=== PATIENT | female | born 1960 | race Caucasian/White ===

== ENCOUNTER 2018-11-25 02:19 | Emergency (ER) | payer OTHER ==
[~2018-11-25] VITALS: Ht 162.6 cm; Wt 97.5 kg
--- NOTE | 2018-11-25 02:31 | ED.ADGEN ---
Past History Past Medical History: Bronchitis, Migraines, Other Past Surgical History: Other Past Surgical History Rotator cuff Adult General Chief Complaint Chief Complaint ".. I woke up with this terrible headache.. I was sleeping in my recliner... I get migraines.. but not usually this bad.. here in the Rt sided of my neck and head...." HPI HPI Patient is a 58 year old femal3 who presents with above hx and complaints Rt neck tenderness and headache. Pt. rates her headache pain as 18/10. Pt. denies any trauma or injury. Patient has history of migraines. Previous CTs negative. Patient past has taken Toradol for headaches when she has seen Dr. Christina. Patient denies any fever or chills. Patient denies any specific ill contacts or travel. Has had recent right shoulder surgery for rotator cuff injury. Pt. describes pain as severe. Pt. does have findings or Rt. trapezius spasm and para spinal muscle spasm > on Rt and at proximal insertion site at base of skull. Review of Systems Review of Systems Constitutional: Denies fever or chills [] Eyes: Denies change in visual acuity, redness, or eye pain [] HENT: Denies nasal congestion or sore throat [] Respiratory: Denies cough or shortness of breath [] Cardiovascular: No additional information not addressed in HPI [] GI: Denies abdominal pain, nausea, vomiting, bloody stools or diarrhea [] : Denies dysuria or hematuria [] Musculoskeletal: Denies back pain or joint pain []Complaints of Rt. sided neck pain. Integument: Denies rash or skin lesions [] Neurologic:complains of headache,Denies focal weakness or sensory changes [] Endocrine: Denies polyuria or polydipsia [] All other systems were reviewed and found to be within normal limits, except as documented in this note. Family History Family History Non-contributory Current Medications Current Medications Current Medications Medications (Trade) Dose Ordered Sig/Connor Start Time Stop Time Status Last Admin Dose Admin Diphenhydramine HCl (Benadryl) 50 mg 1X ONCE 11/25/18 02:45 11/25/18 02:49 DC 11/25/18 03:16 50 MG Ketorolac Tromethamine (Toradol 15mg Vial) 15 mg 1X ONCE 11/25/18 04:15 11/25/18 04:16 DC 11/25/18 04:21 15 MG Lactated Ringer's 1,000 ml @ 1,000 mls/hr Q1H 11/25/18 02:44 11/25/18 03:43 DC 11/25/18 03:15 1,000 MLS/HR Magnesium Sulfate 50 ml @ 25 mls/hr 1X ONCE 11/25/18 03:30 11/25/18 04:45 DC 11/25/18 04:00 25 MLS/HR Orphenadrine Citrate (Norflex) 60 mg 1X ONCE 11/25/18 02:45 11/25/18 02:49 DC 11/25/18 03:17 60 MG Oxycodone/ Acetaminophen (Percocet 5/325) 2 tab 1X ONCE 11/25/18 03:00 11/25/18 03:02 DC 11/25/18 03:17 2 TAB Sodium Chloride 50 ml @ As Directed STK-MED ONCE 11/25/18 03:05 11/25/18 03:06 DC Valproic Acid (Depacon) 500 mg STK-MED ONCE 11/25/18 03:06 11/25/18 03:07 DC Valproic Acid 500 mg/Sodium Chloride 55 ml @ 100 mls/hr 1X STAT 11/25/18 02:44 11/25/18 03:16 DC 11/25/18 03:16 100 MLS/HR See Nursing for home meds. Allergies Allergies Allergies Coded Allergies Type Severity Reaction Last Updated Verified Sulfa (Sulfonamide Antibiotics) Allergy Severe Hives 11/25/18 Yes Physical Exam Physical Exam Constitutional: Moderately acute distress, non-toxic appearance. [] HENT: Normocephalic, atraumatic, bilateral external ears normal, oropharynx moist, no oral exudates, nose normal. [] Eyes: PERRLA, EOMI, conjunctiva normal, no discharge. [] Neck: Muscle spasms , rt. trapezius tenderness, supple, no stridor. [] Cardiovascular:Heart rate regular rhythm, no murmur [] Lungs & Thorax: Bilateral breath sounds equal at apexes and scattered wheezes to auscultation [] Abdomen: Bowel sounds normal, soft, no tenderness, no masses, no pulsatile masses. [] Skin: Warm, dry, no erythema, no rash. [] Back: No tenderness, no CVA tenderness. [] Extremities: No tenderness, no cyanosis, no clubbing, ROM intact, no edema. [] Except. scar Rt shoulder- currently in sling for rotator cuff injury and surgery. Neurologic: Alert and oriented X 3, normal motor function, normal sensory function, no focal deficits noted. []DTR + 2 patella and brachial. Distal Vib. 128 intact. Psychologic: Affect anxious, judgement normal, mood normal. [] Current Patient Data Vital Signs Vital Signs Date Time Temp Pulse Resp B/P (MAP) Pulse Ox O2 Delivery O2 Flow Rate FiO2 11/25/18 04:17 18 96 11/25/18 04:01 62 138/70 (92) 11/25/18 02:27 97.7 Room Air Lab Results Laboratory Tests Test 11/25/18 02:50 White Blood Count 10.5 x10^3/uL (4.0-11.0) Red Blood Count 4.14 x10^6/uL (3.50-5.40) Hemoglobin 13.2 g/dL (12.0-15.5) Hematocrit 38.4 % (36.0-47.0) Mean Corpuscular Volume 93 fL (79-100) Mean Corpuscular Hemoglobin 32 pg (25-35) Mean Corpuscular Hemoglobin Concent 34 g/dL (31-37) Red Cell Distribution Width 12.7 % (11.5-14.5) Platelet Count 361 x10^3/uL (140-400) Neutrophils (%) (Auto) 52 % (31-73) Lymphocytes (%) (Auto) 37 % (24-48) Monocytes (%) (Auto) 6 % (0-9) Eosinophils (%) (Auto) 4 % (0-3) H Basophils (%) (Auto) 1 % (0-3) Neutrophils # (Auto) 5.5 x10^3uL (1.8-7.7) Lymphocytes # (Auto) 3.9 x10^3/uL (1.0-4.8) Monocytes # (Auto) 0.6 x10^3/uL (0.0-1.1) Eosinophils # (Auto) 0.4 x10^3/uL (0.0-0.7) Basophils # (Auto) 0.1 x10^3/uL (0.0-0.2) Erythrocyte Sedimentation Rate 30 (0-25) H Prothrombin Time 10.1 SEC (9.4-11.4) Prothrombin Time INR 1.0 (0.9-1.1) PTT 25 SEC (23-33) Sodium Level 139 mmol/L (136-145) Potassium Level 4.0 mmol/L (3.5-5.1) Chloride Level 104 mmol/L (98-107) Carbon Dioxide Level 25 mmol/L (21-32) Anion Gap 10 (6-14) Blood Urea Nitrogen 21 mg/dL (7-20) H Creatinine 0.9 mg/dL (0.6-1.0) Estimated GFR (Cockcroft-Gault) 64.1 Glucose Level 121 mg/dL (70-99) H Calcium Level 8.7 mg/dL (8.5-10.1) Magnesium Level 1.5 mg/dL (1.8-2.4) L Troponin I Quantitative < 0.017 ng/mL (0-0.055) EKG EKG [] Radiology/Procedures Radiology/Procedures CT of head and cervical- shows no shift, mass, edema, bleed or fracture. Cervical DJD noted, some disc narrowing at C6-7. See formal report when available. [] Course & Med Decision Making Course & Med Decision Making Pertinent Labs and Imaging studies reviewed. (See chart for details) Pt. declines spinal tap at this time.. Exhibit UCAR capacity. Seems aware of risks and complications of getting spinal tap and not receiving one. Use Ice packs to neck 4 x day and as needed. Take T ylenol and Ibuprofen for pain. . Marked pain take Vicoprofen up 4 x day. Take Flexeril 10 three times a day x 3 days. Primo massage. Follow up with primary. Return if any concerns. [] Final Impression Final Impression 1. Migraine Headache 2. Torticollis 3. Hypomagnesium 4. Mild elevation of ESR = 30 Dragon Disclaimer Dragon Disclaimer This electronic medical record was generated, in whole or in part, using a voice recognition dictation system. Dragon Disclaimer This chart was dictated in whole or in part using Voice Recognition software in a busy, high-work load, and often noisy Emergency Department environment. It may contain unintended and wholly unrecognized errors or omissions. Discharge Summary Visit Information Final Diagnosis Problems Medical Problems: (1) Migraine Status: Acute (2) Torticollis Status: Acute Brief Hospital Course Allergies Allergies Coded Allergies Type Severity Reaction Last Updated Verified Sulfa (Sulfonamide Antibiotics) Allergy Severe Hives 11/25/18 Yes Vital Signs Vital Signs Date Time Temp Pulse Resp B/P (MAP) Pulse Ox O2 Delivery O2 Flow Rate FiO2 11/25/18 04:17 18 96 11/25/18 04:01 62 138/70 (92) 11/25/18 02:27 97.7 Room Air Lab Results Laboratory Tests Test 11/25/18 02:50 White Blood Count 10.5 x10^3/uL (4.0-11.0) Red Blood Count 4.14 x10^6/uL (3.50-5.40) Hemoglobin 13.2 g/dL (12.0-15.5) Hematocrit 38.4 % (36.0-47.0) Mean Corpuscular Volume 93 fL (79-100) Mean Corpuscular Hemoglobin 32 pg (25-35) Mean Corpuscular Hemoglobin Concent 34 g/dL (31-37) Red Cell Distribution Width 12.7 % (11.5-14.5) Platelet Count 361 x10^3/uL (140-400) Neutrophils (%) (Auto) 52 % (31-73) Lymphocytes (%) (Auto) 37 % (24-48) Monocytes (%) (Auto) 6 % (0-9) Eosinophils (%) (Auto) 4 % (0-3) Basophils (%) (Auto) 1 % (0-3) Neutrophils # (Auto) 5.5 x10^3uL (1.8-7.7) Lymphocytes # (Auto) 3.9 x10^3/uL (1.0-4.8) Monocytes # (Auto) 0.6 x10^3/uL (0.0-1.1) Eosinophils # (Auto) 0.4 x10^3/uL (0.0-0.7) Basophils # (Auto) 0.1 x10^3/uL (0.0-0.2) Erythrocyte Sedimentation Rate 30 (0-25) Prothrombin Time 10.1 SEC (9.4-11.4) Prothromb Time International Ratio 1.0 (0.9-1.1) Activated Partial Thromboplast Time 25 SEC (23-33) Sodium Level 139 mmol/L (136-145) Potassium Level 4.0 mmol/L (3.5-5.1) Chloride Level 104 mmol/L (98-107) Carbon Dioxide Level 25 mmol/L (21-32) Anion Gap 10 (6-14) Blood Urea Nitrogen 21 mg/dL (7-20) Creatinine 0.9 mg/dL (0.6-1.0) Estimated GFR (Cockcroft-Gault) 64.1 Glucose Level 121 mg/dL (70-99) Calcium Level 8.7 mg/dL (8.5-10.1) Magnesium Level 1.5 mg/dL (1.8-2.4) Troponin I Quantitative < 0.017 ng/mL (0-0.055) Brief Hospital Course Ms. Turpin is a 58 old female who presented with migraine and torticollis Discharge Information Condition at Discharge: Improved Disposition/Orders: D/C to Home Dischare Medications Current Medications Lactated Ringer's 1,000 ml @ 1,000 mls/hr Q1H IV Last administered on at 03:15; Admin Dose 1,000 MLS/HR; Start 11/25/18 at 02:44; Stop 11/25/18 at 03:43; Status DC Orphenadrine Citrate (Norflex) 60 mg 1X ONCE IV Last administered on at 03:17; Admin Dose 60 MG; Start 11/25/18 at 02:45; Stop 11/25/18 at 02:49 ; Status DC Valproic Acid 500 mg/Sodium Chloride 55 ml @ 100 mls/hr 1X STAT IV Last administered on 11/25/18at 03:16; Admin Dose 100 MLS/HR; Start 11/25/18 at 02: 44; Stop 11/25/18 at 03:16; Status DC Diphenhydramine HCl (Benadryl) 50 mg 1X ONCE IV Last administered on at 03:16; Admin Dose 50 MG; Start 11/25/18 at 02:45; Stop 11/25/18 at 02:49 ; Status DC Oxycodone/ Acetaminophen (Percocet 5/325) 2 tab 1X ONCE PO Last administered on 11/25/18at 03:17; Admin Dose 2 TAB; Start 11/25/18 at 03:00; Stop 11/25/18 at 03:02; Status DC Sodium Chloride 50 ml @ As Directed STK-MED ONCE .ROUTE ; Start 11/25/18 at 03: 05; Stop 11/25/18 at 03:06; Status DC Valproic Acid (Depacon) 500 mg STK-MED ONCE IV ; Start 11/25/18 at 03:06; Stop 11/25/18 at 03:07; Status DC Magnesium Sulfate 50 ml @ 25 mls/hr 1X ONCE IV Last administered on at 04:00; Admin Dose 25 MLS/HR; Start 11/25/18 at 03:30; Stop 11/25/18 at 04 :45; Status DC Ketorolac Tromethamine (Toradol 15mg Vial) 15 mg 1X ONCE IV Last administered on 11/25/18at 04:21; Admin Dose 15 MG; Start 11/25/18 at 04:15; Stop 11/25/18 at 04:16; Status DC Active Scripts Active Hydrocodone-Ibuprofen 7.5-200 (Hydrocodone/Ibuprofen) 1 Each Tablet 1 Tab PO PRN Q6HRS PRN ROSENDO GIRARD MD Nov 25, 2018 02:31
[2018-11-25] MEDS ORDERED: VALPROATE SODIUM 500 MG in IV NORMAL SALINE 50ML 50 ML IV STA (02:44)
[2018-11-25] MEDS ORDERED: IV RINGERS SOLUTION,LACTATED 1,000 ML IV SCH (02:44)
[2018-11-25] MEDS ORDERED: ORPHENADRINE CITRATE 60 MG/2 ML VIAL. IV ONE (02:45)
[2018-11-25] MEDS ORDERED: diphenhydrAMINE 50 MG/ML VIAL IV ONE (02:45)
[2018-11-25] MEDS ORDERED: oxyCODONE/APAP 5/325 1 TAB TABLET PO ONE (03:00)
[2018-11-25] MEDS ORDERED: IV NORMAL SALINE 50ML 50 ML ONE (03:05)
[2018-11-25] MEDS ORDERED: VALPROATE SODIUM 500 MG/5 ML VIAL IV ONE (03:06)
[2018-11-25 03:07] LABS: BASO # 0.1 x10^3/uL (0.0-0.2); BASO % 1 % (0-3); EOS # 0.4 x10^3/uL (0.0-0.7); EOS % 4 % (0-3); HEMATOCRIT 38.4 % (36.0-47.0); HEMOGLOBIN 13.2 g/dL (12.0-15.5); LYMPH # 3.9 x10^3/uL (1.0-4.8); LYMPH % 37 % (24-48); MEAN CORPUSCULAR HEMOGLOBIN 32 pg (25-35); MEAN CORPUSCULAR HGB CONC 34 g/dL (31-37); MEAN CORPUSCULAR VOLUME 93 fL (79-100); MONO # 0.6 x10^3/uL (0.0-1.1); MONO % 6 % (0-9); NEUT # 5.5 x10^3uL (1.8-7.7); NEUT % 52 % (31-73); PLATELET COUNT 361 x10^3/uL (140-400); RED BLOOD COUNT 4.14 x10^6/uL (3.50-5.40); RED CELL DISTRIBUTION WIDTH 12.7 % (11.5-14.5); WHITE BLOOD COUNT 10.5 x10^3/uL (4.0-11.0)
[2018-11-25 03:22] LABS: CALCIUM 8.7 mg/dL (8.5-10.1); CREATININE 0.9 mg/dL (0.6-1.0); GFR 64.1; MAGNESIUM 1.5 mg/dL (1.8-2.4)
[2018-11-25] MEDS ORDERED: HYDR-1179 PO (03:26)
[2018-11-25] MEDS ORDERED: MAGNESIUM SULFATE 2GM 50 ML IV ONE (03:30)
--- NOTE | 2018-11-25 03:35 | RAD ---
CT head and cervical spine without contrast 11/25/2018. Reason for exam: Headache and right-sided neck pain. Recent shoulder surgery. Noncontrast images were performed. Sagittal and coronal reconstructions of the cervical spine were obtained. Exposure: One or more of the following individualized dose reduction techniques were utilized for this examination: 1. Automated exposure control 2. Adjustment of the mA and/or kV according to patient size 3. Use of iterative reconstruction technique. There are no available comparison studies. CTA head findings: There is no apparent intracranial mass, hemorrhage or abnormal extra-axial fluid collection. No area of abnormal density is seen in the brain. The ventricles and basilar cisterns are normally positioned. There is focal opacification of the right frontal sinus. The sinuses and mastoid air cells otherwise appear clear. IMPRESSION: No acute intracranial abnormality. CT cervical spine: Alignment is normal. There is no loss of vertebral body height or prevertebral soft tissue swelling. No fracture line is seen. There is some disc narrowing at C6-7. The other discs appear well-maintained. Evaluation of the soft tissue components of the canal is limited without intrathecal contrast. No destructive process is seen. IMPRESSION: Mild degenerative changes. No apparent acute abnormality. Electronically signed by: Willian Nguyen Jr., MD (11/25/2018 3:31 AM) [id number]
[2018-11-25 04:01] VITALS: BP 138/70
[2018-11-25 04:06] LABS: SEDIMENTATION RATE 30 (0-25)
[2018-11-25] MEDS ORDERED: KETOROLAC 15 MG/ML VIAL. IV ONE (04:15)
== END 2018-11-25 04:45 | disposition home or self-care (01) ==
LOC: ER 02:19
DX: G43.909 Migraine, unspecified, not intractable, without status migrainosus (principal); M43.6 Torticollis; E83.42 Hypomagnesemia; R70.0 Elevated erythrocyte sedimentation rate; Z88.2 Allergy status to sulfonamides
CPT/HCPCS: 36415; 70450; 72125; 80048; 83735; 84443; 84484; 85025; 85610; 85651; 85730; 96365; 96367; 96375; 99284; J1200; J1885; J2360; J3475; J3490; J7120

== ENCOUNTER → 2019-06-12 | Outpatient (CLI) | payer OTHER ==
[~2019-06-12] MED LIST: HYDR-1179 PO
--- NOTE | 2019-06-12 16:14 | RAD ---
CHEST PA LATERAL History: Cough Comparison: CT January 29, 2014. Findings: No consolidation or pleural effusion. Normal heart size. No acute osseous abnormality. Mild hyperinflation. Impression: 1. No acute cardiopulmonary process. 2. Mild hyperinflation. Electronically signed by: Anthony Rivas MD (06/12/2019 4:11 PM) [email or web address]
== END | disposition home or self-care (01) ==
LOC: DXRAD 15:07
PROVIDERS: ATTEND Family Medicine
DX: R91.8 Other nonspecific abnormal finding of lung field (principal)
CPT/HCPCS: 71046

== ENCOUNTER → 2019-06-21 | Outpatient (CLI) | payer OTHER ==
--- NOTE | 2019-06-21 16:09 | RAD ---
Examination: 3 views of the lumbar spine and 3 views of the thoracic spine HISTORY: History of chronic back pain COMPARISON: None available. FINDINGS: Moderate intervertebral disc height loss identified in the visualized thoracic and lumbar spine likely degeneration. No significant listhesis identified. Moderate degenerative changes identified in the facet joints particularly in the lower lumbar spine at L4-L5, L5-S1 vertebral levels. IMPRESSION: Moderate degenerative changes thoracic and lumbar spine. Electronically signed by: Jayesh Chen MD (06/21/2019 4:07 PM) [facility]
--- NOTE | 2019-06-21 16:09 | RAD ---
Examination: 3 views of the lumbar spine and 3 views of the thoracic spine HISTORY: History of chronic back pain COMPARISON: None available. FINDINGS: Moderate intervertebral disc height loss identified in the visualized thoracic and lumbar spine likely degeneration. No significant listhesis identified. Moderate degenerative changes identified in the facet joints particularly in the lower lumbar spine at L4-L5, L5-S1 vertebral levels. IMPRESSION: Moderate degenerative changes thoracic and lumbar spine. Electronically signed by: Jayesh Chen MD (06/21/2019 4:07 PM) [facility]
== END | disposition home or self-care (01) ==
LOC: DXRAD 11:58
PROVIDERS: ATTEND General Practice
DX: M47.817 Spondylosis without myelopathy or radiculopathy, lumbosacral region (principal); G89.29 Other chronic pain
CPT/HCPCS: 72072; 72100

== ENCOUNTER → 2019-12-18 | Outpatient (CLI) | payer BC ==
--- NOTE | 2019-12-18 18:18 | RAD ---
AP pelvis to include bilateral hip radiographs 12/18/2019 CLINICAL HISTORY: Pelvic and bilateral hip pain. An AP digital radiograph of the pelvis was obtained. AP and lateral digital radiographs of the right hip were obtained. Surgical clips overlie the sacrum. No pelvic bone fracture is seen. No fracture or dislocation of either hip is noted. Mild degenerative changes are seen involving both SI joints. Mild to moderate degenerative changes are seen involving both hips. IMPRESSION: Mild to moderate degenerative changes are seen involving both hips. No acute osseous abnormality is seen. Electronically signed by: Alexei Tellez MD (12/18/2019 6:15 PM) [facility]
== END | disposition home or self-care (01) ==
LOC: PMG 15:04
PROVIDERS: ATTEND Registered Nurse
DX: M16.0 Bilateral primary osteoarthritis of hip (principal); M53.3 Sacrococcygeal disorders, not elsewhere classified
CPT/HCPCS: 73521

== ENCOUNTER → 2020-01-01 | Outpatient (CLI) | payer BC ==
--- NOTE | 2020-01-03 12:20 | RAD ---
History: Routine Screening. Technique: Bilateral digital mammographic routine views were obtained with 2-D and 3-D technique, including CAD - computer aided detection. Comparison: 06/08/2013. Findings: Breast Tissue Density A : The breast tissue is predominately fatty replaced. There are no suspicious masses, microcalcifications or areas of architectural distortion. Impression: Negative mammogram. BI-RADS Category 1: Negative. Normal interval followup. . A mammogram does not have 100% sensitivity and therefore a negative imaging study should not delay further work up of a suspicious abnormality. The patient will receive a letter with the results in the mail. Patient information is entered into the reminder system with a target due date for the next screening mammogram. The patient will receive a reminder. "Our facility is accredited by the [employer] Mammography Program." BI-RADS 1 -- negative findings (within normal)
== END | disposition home or self-care (01) ==
LOC: MAMMO 09:01
PROVIDERS: ATTEND Registered Nurse
DX: Z12.31 Encounter for screening mammogram for malignant neoplasm of breast (principal); N64.89 Other specified disorders of breast
CPT/HCPCS: 77063; 77067

== ENCOUNTER → 2020-01-08 | Outpatient (CLI) | payer BC ==
--- NOTE | 2020-01-08 15:55 | RAD ---
AP and Lateral Views of the Chest 01/08/2020 12:00 AM Indication: Cough Comparison: Mild interstitial coarsening in the apical lucency is seen. Correlate with this history of COPD. Or pneumothorax or effusion is seen. Mild linear opacity in the right lung base likely reflects scarring or atelectasis. Heart size is normal. Bony thorax demonstrates no acute abnormality. IMPRESSION: 1. Mild atelectasis or scarring in the right lung base 2. Mild interstitial coarsening with apical lucency. Correlate with evidence of COPD Electronically signed by: Lazarus Husain MD (01/08/2020 3:11 PM) [email or web address]
== END | disposition home or self-care (01) ==
LOC: PMG 10:12
PROVIDERS: ATTEND Registered Nurse
DX: J44.9 Chronic obstructive pulmonary disease, unspecified (principal)
CPT/HCPCS: 71046

== ENCOUNTER → 2021-06-23 | Outpatient (CLI) | payer OTHER ==
--- NOTE | 2021-06-23 12:31 | RAD ---
EXAM: PA and Lateral Views of the Chest DATE: 06/23/2021 11:59 AM INDICATION: Reason: COUGH / Spl. Instructions: / History: COMPARISON: No Prior FINDINGS: The heart is not enlarged. Mediastinal and hilar contours are normal. No focal parenchymal airspace opacity. No pleural effusion or pneumothorax. IMPRESSION: 1. No radiographic evidence for acute cardiopulmonary process. Electronically signed by: Rakesh Spivey MD (06/23/2021 12:28 PM) [id number]
== END ==
LOC: PMG 11:48
PROVIDERS: ATTEND Nurse Practitioner Family
DX: J06.9 Acute upper respiratory infection, unspecified (principal)
CPT/HCPCS: 71046

== ENCOUNTER → 2021-12-16 | Outpatient (CLI) | payer OTHER ==
--- NOTE | 2021-12-16 15:55 | RAD ---
Bilateral digital screening 2-D and 3-D (digital breast tomosynthesis) mammogram: Reason for examination: Routine screening. Comparison: Mammogram from 01/01/2020. Interpretation was made with the benefit of CAD. FINDINGS: Breast density: Category A. Breast tissue is almost entirely fatty. No suspicious breast mass, malignant appearing calcifications, or architectural distortion is seen. IMPRESSION: No evidence of malignancy. Assessment: BI-RADS 1. Negative. Recommendation: Routine screening mammograms. The patient will receive a letter with the results in the mail. Patient information will be entered i nto the mammography reminder system with a target recall date for the next mammogram. A reminder esther er will be generated. Electronically signed by: Radha Lafleur MD (12/16/2021 3:52 PM) [id number]
== END ==
LOC: MAMMO 15:06
PROVIDERS: ATTEND Family Medicine
DX: Z12.31 Encounter for screening mammogram for malignant neoplasm of breast (principal)
CPT/HCPCS: 77063; 77067